=== PATIENT | male | born 1945 | race Caucasian/White ===

== ENCOUNTER 2018-09-23 20:32 | Emergency (ER) | payer MEDICARE, BC ==
[2018-09-23] MEDS ORDERED: Lidocaine 1% PF 5 ML VIAL ONE (20:39)
[2018-09-23] MEDS ORDERED: Bacitracin Zinc 1 Packet ONE (21:34)
== END 2018-09-23 21:45 | disposition home or self-care (01) ==
LOC: ERS 20:32
DX: S61.214A Laceration without foreign body of right ring finger without damage to nail, initial encounter (principal); J45.909 Unspecified asthma, uncomplicated; W45.8XXA Other foreign body or object entering through skin, initial encounter
CPT/HCPCS: 12002; J2001